=== PATIENT | male | born 1995 | race Caucasian/White ===

== ENCOUNTER 2018-08-25 15:52 | Emergency (ER) | payer OTHER ==
[~2018-08-25] VITALS: Ht 185.4 cm; Wt 99.8 kg
--- OUTSIDE RECORDS SUMMARY | ~2018-08-25 | XMS | Clinical Summary ---
Demographics + + + | Address | [address] | | | [place] [address] | + + + | Home Phone | | + + + | Preferred Language | Unknown | + + + | Marital Status | Single | + + + | Congregational Affiliation | Unknown | + + + | Race | White | + + + | Ethnic Group | Not or | + + + Author + + + | Organization | Unknown | + + + | Address | Unknown | + + + | Phone | Unavailable | + + + Support + + +---------+ + | Name | Relationship | Address | Phone | + + +---------+ + | DEACON PISANO | ECON | Unknown | | + + +---------+ + Care Team Providers + +------+ + | Care Special Delivery Worker Name | Role | Phone | + +------+ + PP | Unavailable | + +------+ + Source Comments AVINASH is fully live on both EpicCare Ambulatory and EpicCare InPatient.[facility] Allergies Not on File Current Medications Not on file Active Problems Not on file Social History + +-------+ +--------+------+ | Tobacco Use | Types | Packs/Day | Years | Date | | | | | Used | | + +-------+ +--------+------+ | Never Assessed | | | | | + +-------+ +--------+------+ + + + | Sex Assigned at | Date Recorded | | | | + + + | Not on file | | + + + Plan of Treatment + + + + + | Health Maintenance | Due Date | Last Done | Comments | + + + + + | Influenza (Flu) | | | | | vaccination (#1) | 8 | | | + + + + + Results Not on filefrom Last 3 Months"
--- OUTSIDE RECORDS SUMMARY | ~2018-08-25 | XMS | Clinical Summary ---
Demographics + + + | Address | [address] | | | [place] [address] | + + + | Home Phone | | + + + | Preferred Language | Unknown | + + + | Marital Status | Single | + + + | Taoist Affiliation | Unknown | + + + | Race | Unknown | + + + | Ethnic Group | Unknown | + + + Author + + + | Author | [facility] | | | and [place] | + + + | Organization | [facility] | | | and [place] | + + + | Address | Unknown | + + + | Phone | Unavailable | + + + Support + + +---------+ + | Name | Relationship | Address | Phone | + + +---------+ + | Heaven Barton | ECON | Unknown | | + + +---------+ + Care Team Providers + +------+ + | Care Hyperion Essbase Developer Name | Role | Phone | + +------+ + | Noel Lim DO | PP | Unavailable | + +------+ + Allergies No Known Allergies Current Medications + + +-------+---------+------+------+-------+ | Prescription | Sig. | Disp. | Refills | Star | End | Statu | | | | | | t | Date | s | | | | | | Date | | | + + +-------+---------+------+------+-------+ | metFORMIN | Take 500 mg by mouth | | | | | Activ | | (GLUCOPHAGE) 500 mg | 2 times daily (with | | | | | e | | tablet | breakfast & | | | | | | | | dinner). | | | | | | + + +-------+---------+------+------+-------+ Active Problems No known active problems Family History + +------+--------+ + | Relation | Name | Status | Comments | + +------+--------+ + | Father | | Alive | | + +------+--------+ + | Mother | | Alive | | + +------+--------+ + Social History + +-------+ +--------+------+ | Tobacco Use | Types | Packs/Day | Years | Date | | | | | Used | | + +-------+ +--------+------+ | Never Smoker | | | | | + +-------+ +--------+------+ + +---+---+---+ | Smokeless Tobacco: | | | | | Never Used | | | | + +---+---+---+ + + +---------+ + | Alcohol Use | Drinks/We | oz/Week | Comments | | | ek | | | + + +---------+ + | No | | | | + + +---------+ + + + + | Sex Assigned at | Date Recorded | | | | + + + | Not on file | | + + + Last Filed Vital Signs + + + + | Vital Sign | Reading | Time Taken | + + + + | Blood Pressure | 102/58 | 09/22/2017924 PST | + + + + | Pulse | 64 | 09/22/2017924 PST | + + + + | Temperature | 36.6 C (97.9 F) | 09/22/2017924 PST | + + + + | Respiratory Rate | 16 | 09/22/2017924 PST | + + + + | Oxygen Saturation | 100% | 09/22/2017924 PST | + + + + | Inhaled Oxygen | - | - | | Concentration | | | + + + + | Weight | 93.6 kg (206 lb 5.6 | 09/22/2017924 PST | | | oz) | | + + + + | Height | 185.4 cm (6' 1") | 09/22/2017924 PST | + + + + | Body Mass Index | 27.22 | 09/22/2017924 PST | + + + + Plan of Treatment + + + + + | Health Maintenance | Due Date | Last Done | Comments | + + + + + | Vaccine: | | | | | Dtap/Tdap/Td (1 - | 5 | | | | Tdap) | | | | + + + + + | Vaccine: Influenza | | | | | (#1) | 8 | | | + + + + + Results Not on filefrom Last 3 Months Insurance + +--------+ +--------+ +---------+ | Payer | Benefi | Subscriber | Type | Phone | Address | | | t Plan | ID | | | | | | / | | | | | | | Group | | | | | + +--------+ +--------+ +---------+ | CIGNA | CIGNA | [id number] | PPO | [phone] | | | PPO | | | [phone] | | + +--------+ +--------+ +---------+ | [place] | MEDICA | [id number] | Medica | [phone] | | | [place] | | id | [phone] | | | | PLUS | | | | | + +--------+ +--------+ +---------+ + +--------+ +--------+ + + | Guarantor Name | Accoun | Relation to | Date | Phone | Billing Address | | | t Type | Patient | of | | | | | | | | | | + +--------+ +--------+ + + | ELVIA REGALADO | Person | Self [birth year] Work: | [address] | | | [employer] | | 1994 | [phone] | [place] | | | yeni | | [phone]: | [id number] | | | | | | | | | | | | [phone] | | | | | | | [phone] | | + +--------+ +--------+ + +
--- OUTSIDE RECORDS SUMMARY | ~2018-08-25 | XMS ---
Demographics + + + | Address | [address] | | | [place] [address] | + + + | Home Phone | | + + + | Preferred Language | Unknown | + + + | Marital Status | Never | + + + | Zoroastrianism Affiliation | Unknown | + + + | Race | White | + + + | Ethnic Group | Not or | + + + Author + + + | Author | [facility] | + + + | Organization | [facility] | + + + | Address | [address] | | | [place] [address] | + + + | Phone | | + + + Care Team Providers + + + + | Care Scaler Packer Name | Role | Phone | + + + + | Porsha Karimi PCP | | + + + + | Porsha Karimi | PreferredProvider | | + + + + Allergies and Adverse Reactions + + +-------+ | Name | Reaction | Notes | + + +-------+ | NO KNOWN DRUG ALLERGIES | | | + + +-------+ Plan of Treatment + + + + + + | Planned | Comments | Planned Date | Planned Time | Plan/Goal | | Activity | | | | | + + + + + + | QUAD flu (P) | | 07/10/2018 | 12:00 AM | | | pres free 3+ | | | | | + + + + + + | ADMIN ONE | | 07/10/2018 | 12:00 AM | | | VACCINE | | | | | + + + + + + Medications +---------+ | | +---------+ + + + + + + | Name | Start Date | Expiration Date | SIG | Comments | + + + + + + | Tenex 1 mg oral | 09/10/2010 | 12/09/2010 | take 1 tablet | | | tablet | | | by oral route 2 | | | | | | times a day | | | | | | for 30 days | | + + + + + + | amoxicillin 875 | 09/26/2010 | 10/06/2010 | take 1 tablet | | | mg oral tablet | | | (875 mg) by | | | | | | oral route | | | | | | every 12 hours | | | | | | for 10 days | | + + + + + + | ofloxacin 0.3 % | 06/21/2011 | 06/28/2011 | instill 2 drops | | | otic drops | | | in affected | | | | | | ear 2 times a | | | | | | day for 7 days | | + + + + + + | Zithromax 250 | 06/26/2011 | 07/01/2011 | take 2 tablets | | | mg oral tablet | | | (500 mg) by | | | | | | oral route once | | | | | | daily for 1 | | | | | | day then 1 | | | | | | tablet (250 mg) | | | | | | by oral route | | | | | | once daily for | | | | | | 4 days | | + + + + + + | erythromycin | 06/29/2013 | 06/24/2014 | apply a thin | | | with ethanol 2 | | | layer to the | | | % topical | | | affected | | | solution | | | area(s) by | | | | | | topical route 2 | | | | | | times per day | | | | | | in the morning | | | | | | and evening for | | | | | | 30 days | | + + + + + + | minocycline 100 | 06/29/2013 | 06/24/2014 | take 1 capsule | | | mg oral | | | by mouth once | | | capsule | | | daily | | + + + + + + | Epiduo 0.1-2.5 | 10/04/2013 | 04/02/2014 | apply a thin | | | % topical gel | | | layer to the | | | with pump | | | affected | | | | | | area(s) after | | | | | | washing by | | | | | | topical route | | | | | | once daily | | + + + + + + | fluoxetine 20 | 01/07/2014 | 04/07/2014 | take 1 capsule | | | mg oral capsule | | | (20 mg) by oral | | | | | | route once | | | | | | daily for 30 | | | | | | days | | + + + + + + | Tia Lomas-Watson | 09/28/2014 | 10/03/2014 | take 2 tablets | | | 250 mg oral | | | (500 mg) by | | | tablet | | | oral route once | | | | | | daily for 1 | | | | | | day then 1 | | | | | | tablet (250 mg) | | | | | | by oral route | | | | | | once daily for | | | | | | 4 days | | + + + + + + | albuterol | 09/28/2014 | 11/09/2014 | inhale 2 puffs | | | sulfate 90 | | | Q 4 hrs prn | | | mcg/actuation | | | cough | | | inhalation HFA | | | | | | aerosol inhaler | | | | | + + + + + + + + | Discontinued | + + + + + + + + | Name | Start Date | Discontinued | SIG | Comments | | | | Date | | | + + + + + + | Singulair 10 mg | | 10/06/2012 | take 1 tablet | | | oral tablet | | | (10 mg) by oral | | | | | | route once | | | | | | daily in the | | | | | | evening | | + + + + + + | Prozac 20 mg | 08/23/2010 | 03/26/2012 | take 1.5 | | | oral capsule | | | capsules by | | | | | | oral route | | | | | | daily | | + + + + + + | Cortisporin | 06/21/2011 | 06/21/2011 | instill 3 drops | | | 3.5-10,000-1 | | | into L ear TID | | | mg/mL-unit/mL-% | | | x 7 days | | | otic | | | | | | drops,suspensio | | | | | | n | | | | | + + + + + + | Vyvanse 30 mg | 06/28/2011 | 03/26/2012 | take 1 capsule | | | oral capsule | | | (30 mg) by oral | | | | | | route once | | | | | | daily in the | | | | | | morning for 30 | | | | | | days | | + + + + + + | Cleocin T 1 % | 07/08/2011 | 06/29/2013 | apply a thin | | | topical | | | film to | | | solution | | | affected | | | | | | area(s) by | | | | | | topical route 2 | | | | | | times per day | | + + + + + + Problem List + +--------+ + | Description | Status | Onset | + +--------+ + | Anxiety Disorder | Active | 09/10/2010 | + +--------+ + | Attention Deficit Disorder, | Active | 09/10/2010 | | Inattentive Type | | | + +--------+ + | Acanthosis nigricans | Active | 09/10/2010 | + +--------+ + | Acne | Active | 03/28/2012 | + +--------+ + | Developmental Delay | Active | | + +--------+ + | 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 | | | + +--------+ + | Speech disturbance | Active | | + +--------+ + | Kyphosis | Active | | + +--------+ + Vital Signs +-----+-----+-----+-----+-----+-----+-----+-----+-----+----+-----+-----+-----+-----+ | Bi | Artis | BP- | BP- | HR( | RR( | Tem | WT | HT | HC | BMI | BSA | BMI | O2 | | e | e | Sys | Janae | bpm | rpm | p | | | | | | | Sat | | | | (mm | (mm | ) | ) | | | | | | | Per | (%) | | | | [Hg | [Hg | | | | | | | | | ruy | | | | | ] | ]) | | | | | | | | | til | | | | | | | | | | | | | | | e | | +-----+-----+-----+-----+-----+-----+-----+-----+-----+----+-----+-----+-----+-----+ | 12/ | 5:0 | 110 | 78 | 76 | 16 | 99 | 180 | 71. | | 24. | 2.0 | 78. | 98 | | 10/ | 8:0 | | mmH | bpm | rpm | F | | 5 | | 754 | 295 | 2 % | % | | 201 | 0 | mmH | g | | | | lbs | in | | 8 | | | | | 4 | PM | g | | | | | | | | kg/ | m | | | | | | | | | | | | | | m | | | | +-----+-----+-----+-----+-----+-----+-----+-----+-----+----+-----+-----+-----+-----+ | 4/8 | 11: | 102 | 72 | 79 | 16 | 99. | 182 | 71. | | 25. | 2.0 | 83. | 100 | | /20 | 18: | | mmH | bpm | rpm | 2 F | .5 | 5 | | 10 | 4 | 4 % | % | | 14 | 00 | mmH | g | | | | lbs | in | | kg/ | m2 | | | | | AM | g | | | | | | | | m2 | | | | +-----+-----+-----+-----+-----+-----+-----+-----+-----+----+-----+-----+-----+-----+ | 11/ | 11: | 102 | 78 | 72 | 16 | 98. | 179 | 71. | | 24. | 2.0 | 82. | 98 | | 2/2 | 32: | | mmH | bpm | rpm | 4 F | | 5 | | 617 | 239 | 4 % | % | | 013 | 00 | mmH | g | | | | lbs | in | | 2 | | | | | | AM | g | | | | | | | | kg/ | m | | | | | | | | | | | | | | m | | | | +-----+-----+-----+-----+-----+-----+-----+-----+-----+----+-----+-----+-----+-----+ | 9/1 | 8:4 | 102 | 70 | 71 | 16 | 98. | 174 | 71. | | 24. | 1.9 | 80. | 98 | | 0/2 | 2:0 | | mmH | bpm | rpm | 6 F | .5 | 2 | | 20 | 9 | 4 % | % | | 013 | 0 | mmH | g | | | | lbs | in | | kg/ | m2 | | | | | AM | g | | | | | | | | m2 | | | | +-----+-----+-----+-----+-----+-----+-----+-----+-----+----+-----+-----+-----+-----+ | 6/8 | 8:2 | 110 | 68 | 70 | 16 | 98. | 170 | 70. | | 23. | 1.9 | 83. | | | /20 | 1:0 | | mmH | bpm | rpm | 7 F | | 8 | | 844 | 626 | 9 % | | | 12 | 0 | mmH | g | | | | lbs | in | | 1 | | | | | | AM | g | | | | | | | | kg/ | m | | | | | | | | | | | | | | m | | | | +-----+-----+-----+-----+-----+-----+-----+-----+-----+----+-----+-----+-----+-----+ | 9/9 | 12: | 118 | 70 | 80 | 16 | 97. | 158 | 69. | | 23. | 1.8 | 83. | | | /20 | 06: | | mmH | bpm | rpm | 7 F | | 2 | | 20 | 7 | 4 % | | | 11 | 00 | mmH | g | | | | lbs | in | | kg/ | m2 | | | | | PM | g | | | | | | | | m2 | | | | +-----+-----+-----+-----+-----+-----+-----+-----+-----+----+-----+-----+-----+-----+ | 9/2 | 8:1 | 110 | 62 | 70 | 16 | 98. | 159 | 69. | | 23. | 1.8 | 83. | | | /20 | 4:0 | | mmH | bpm | rpm | 2 F | .5 | 5 | | 216 | 835 | 6 % | | | 11 | 0 | mmH | g | | | | lbs | in | | 1 | | | | | | AM | g | | | | | | | | kg/ | m | | | | | | | | | | | | | | m | | | | +-----+-----+-----+-----+-----+-----+-----+-----+-----+----+-----+-----+-----+-----+ | 11/ | 8:4 | 112 | 82 | 80 | 16 | 98. | 144 | 67. | | 22. | 1.7 | 82. | | | 22/ | 3:0 | | mmH | bpm | rpm | 3 F | | 3 | | 352 | 6 | 1 % | | | 201 | 0 | mmH | g | | | | lbs | in | | 7 | m2 | | | | 0 | AM | g | | | | | | | | kg/ | | | | | | | | | | | | | | | m | | | | +-----+-----+-----+-----+-----+-----+-----+-----+-----+----+-----+-----+-----+-----+ Social History + + + + | Name | Description | Comments | + + + + | Tobacco | Never smoker | | + + + + | Lives With | | parents Heaven and Karlos, | | | | sisters Josefa and Lesly | + + + + History of Procedures + + + + | Date Ordered | Description | Order Status | + + + + | 06/21/2011 12:00 AM | FLU VACCINE NASAL | Reviewed | + + + + | 06/21/2011 12:00 AM | IMMUNE ADMIN ORAL/NASAL | Reviewed | + + + + | 11/26/2010 12:00 AM | TDAP VACCINE 7 YRS/> IM | Reviewed | + + + + | 06/28/2011 12:00 AM | FLU VACCINE 3 YRS & > IM | Reviewed | + + + + | 06/28/2011 12:00 AM | IMMUNIZATION ADMIN | Reviewed | + + + + | 09/28/2014 12:00 AM | MEASURE BLOOD OXYGEN LEVEL | Reviewed | + + + + | 11/26/2010 12:00 AM | IMMUNIZATION ADMIN | Reviewed | + + + + | 07/31/2012 12:00 AM | FLU VACCINE NASAL | Reviewed | + + + + | 03/27/2012 12:00 AM | X-RAY EXAM SPINE AP&LAT | Reviewed | + + + + | 08/01/2015 12:00 AM | FLU VACCINE 4 VALENT NASAL | Reviewed | + + + + | 08/01/2015 12:00 AM | IMMUNE ADMIN ORAL/NASAL | Reviewed | + + + + | 07/31/2012 12:00 AM | IMMUNE ADMIN ORAL/NASAL | Reviewed | + + + + | 09/10/2010 12:00 AM | FLU VACCINE NASAL | Reviewed | + + + + | 09/10/2010 12:00 AM | COMPREHEN METABOLIC PANEL | Reviewed | + + + + | 09/10/2010 12:00 AM | COMPLETE CBC W/AUTO DIFF | Reviewed | | | WBC | | + + + + | 09/10/2010 12:00 AM | ASSAY OF FREE THYROXINE | Reviewed | + + + + | 09/10/2010 12:00 AM | ASSAY OF INSULIN | Reviewed | + + + + | 09/10/2010 12:00 AM | ASSAY THYROID STIM HORMONE | Reviewed | + + + + | 09/10/2010 12:00 AM | LIPID PANEL | Reviewed | + + + + | 12/29/2015 12:00 AM | HPV VACCINE 4 VALENT IM | Reviewed | + + + + | 12/29/2015 12:00 AM | IMMUNIZATION ADMIN | Reviewed | + + + + | 09/10/2010 12:00 AM | IMMUNE ADMIN ORAL/NASAL | Reviewed | + + + + | 06/29/2013 12:00 AM | IMMUNE ADMIN ORAL/NASAL | Reviewed | | | ADDL | | + + + + | 06/29/2013 12:00 AM | IMMUNIZATION ADMIN EACH ADD | Reviewed | + + + + | 06/29/2013 12:00 AM | IMMUNIZATION ADMIN | Reviewed | + + + + | 06/29/2013 12:00 AM | HPV VACCINE 4 VALENT IM | Reviewed | + + + + | 06/29/2013 12:00 AM | MENINGOCOCCAL VACCINE IM | Reviewed | + + + + | 06/29/2013 12:00 AM | FLU VACCINE 4 VALENT NASAL | Reviewed | + + + + | 06/29/2013 12:00 AM | MEASURE BLOOD OXYGEN LEVEL | Reviewed | + + + + | 08/21/2013 12:00 AM | MEASURE BLOOD OXYGEN LEVEL | Reviewed | + + + + | 06/24/2017 12:00 AM | FLU VAC NO PRSV 4 ALVARO 3 | Reviewed | | | YRS+ | | + + + + | 06/24/2017 12:00 AM | IMMUNIZATION ADMIN | Reviewed | + + + + | 08/15/2014 12:00 AM | IMMUNE ADMIN ORAL/NASAL | Reviewed | + + + + | 01/25/2014 12:00 AM | HPV VACCINE 4 VALENT IM | Reviewed | + + + + | 01/25/2014 12:00 AM | IMMUNIZATION ADMIN | Reviewed | + + + + | 08/15/2014 12:00 AM | FLU VACCINE 4 VALENT NASAL | Reviewed | + + + + Results Summary + + + | Date and Description | Results | + + + | 09/15/2010 9:08 AM | CHOLESTEROL 143 TRIGLYCERIDES 233 HDL 38 | | | LDL 58 VLDL 47 CHOL/HDL 3.8 NON-HDL CHOL | | | 105 FREE T4 0.81 TSH, 3rd GEN. 2.56 SODIUM | | | 139 POTASSIUM 3.8 CHLORIDE 103 CARBON | | | DIOXIDE 27 ANION GAP 12.8 GLUCOSE 83 UREA | | | NITROGEN 15 CREATININE, SERUM 0.61 GFR | | | ESTIMATION NOT PERFORMED BUN/CREAT.RATIO | | | 24.6 CALCIUM 9.8 AST(SGOT) 23 ALT(SGPT) 25 | | | ALKALINE PHOS 295 BILIRUBIN, TOTAL 0.4 | | | PROTEIN 7.8 ALBUMIN 4.9 GLOBULIN 2.9 A/G | | | RATIO 1.7 HEMOGLOBIN A1C 5.5 EST AVG | | | GLUCOSE 111 INSULIN, FASTING 13.4 WBC 5.8 | | | RBC 4.73 HEMOGLOBIN 14.1 HEMATOCRIT 42.2 | | | MCV 89.4 RDW 12.0 MCH 30 MCHC 33 PLATELET | | | COUNT 277 NEUTROPHILS 39.1 LYMPHOCYTES | | | 50.5 MONOCYTES 8.4 EOSINOPHILS 1.4 | | | BASOPHILS 0.6 | + + + History Of Immunizations +-------+-------+-------+------+-------+-------+-------+-------+-------+-------+-----+ | Name | Date | Mfg | Mfg | Trade | Lot# | Route | Inj | Vis | Vis | CVX | | | Admin | Name | Code | Name | | | | Given | Pub | | +-------+-------+-------+------+-------+-------+-------+-------+-------+-------+-----+ | DTaP | | Not | NE | Not | | Not | Not | | | 999 | | | 998 | Enter | | Enter | | Enter | Enter | 001 | 001 | | | | | ed | | ed | | ed | ed | | | | +-------+-------+-------+------+-------+-------+-------+-------+-------+-------+-----+ | DTaP | 06/06/ | Not | NE | Not | | Not | Not | 0 | | 999 | | | 2000 | Enter | | Enter | | Enter | Enter | 001 | 001 | | | | | ed | | ed | | ed | ed | | | | +-------+-------+-------+------+-------+-------+-------+-------+-------+-------+-----+ | Hib | | Not | NE | Not | | Not | Not | 0 | | 999 | | | 998 | Enter | | Enter | | Enter | Enter | 001 | 001 | | | | | ed | | ed | | ed | ed | | | | +-------+-------+-------+------+-------+-------+-------+-------+-------+-------+-----+ | IPV | | Not | NE | Not | | Not | Not | | | 999 | | | 998 | Enter | | Enter | | Enter | Enter | 001 | 001 | | | | | ed | | ed | | ed | ed | | | | +-------+-------+-------+------+-------+-------+-------+-------+-------+-------+-----+ | IPV | 06/06/ | Not | NE | Not | | Not | Not | | | 999 | | | 2000 | Enter | | Enter | | Enter | Enter | 001 | 001 | | | | | ed | | ed | | ed | ed | | | | +-------+-------+-------+------+-------+-------+-------+-------+-------+-------+-----+ | MMR | 09/08 | Not | NE | Not | | Not | Not | | | 999 | | | /1998 | Enter | | Enter | | Enter | Enter | 001 | 001 | | | | | ed | | ed | | ed | ed | | | | +-------+-------+-------+------+-------+-------+-------+-------+-------+-------+-----+ | MMR | 06/06/ | Not | NE | Not | | Not | Not | | | 999 | | | 2000 | Enter | | Enter | | Enter | Enter | 001 | 001 | | | | | ed | | ed | | ed | ed | | | | +-------+-------+-------+------+-------+-------+-------+-------+-------+-------+-----+ | Varic | 08/08 | Not | NE | Not | | Not | Not | | | 999 | | feli | /2005 | Enter | | Enter | | Enter | Enter | 001 | 001 | | | | | ed | | ed | | ed | ed | | | | +-------+-------+-------+------+-------+-------+-------+-------+-------+-------+-----+ | Hep A | 06/06/ | Not | NE | Not | | Not | Not | | | 999 | | | 2000 | Enter | | Enter | | Enter | Enter | 001 | 001 | | | | | ed | | ed | | ed | ed | | | | +-------+-------+-------+------+-------+-------+-------+-------+-------+-------+-----+ | Hep A | 02/28/ | Not | NE | Not | | Not | Not | | | 999 | | | 2001 | Enter | | Enter | | Enter | Enter | 001 | 001 | | | | | ed | | ed | | ed | ed | | | | +-------+-------+-------+------+-------+-------+-------+-------+-------+-------+-----+ | Prevn | 09/10 | Not | NE | Not | | Not | Not | | | 999 | | ar | | Enter | | Enter | | Enter | Enter | 001 | 001 | | | | | ed | | ed | | ed | ed | | | | +-------+-------+-------+------+-------+-------+-------+-------+-------+-------+-----+ | Rotav | 09/10 | Not | NE | Not | | Not | Not | | | 999 | | irus | | Enter | | Enter | | Enter | Enter | 001 | 001 | | | | | ed | | ed | | ed | ed | | | | +-------+-------+-------+------+-------+-------+-------+-------+-------+-------+-----+ | Menac | 06/06/ | Not | NE | Not | | Not | Not | | | 999 | | tra | 2006 | Enter | | Enter | | Enter | Enter | 001 | 001 | | | | | ed | | ed | | ed | ed | | | | +-------+-------+-------+------+-------+-------+-------+-------+-------+-------+-----+ | FluMi | 06/02/ | Not | NE | Not | | Not | Not | | | 999 | | st | 2008 | Enter | | Enter | | Enter | Enter | 001 | 001 | | | | | ed | | ed | | ed | ed | | | | +-------+-------+-------+------+-------+-------+-------+-------+-------+-------+-----+ | FluMi | 09/10 | Med[facility] | MED | Flu-N | [id number] | Intra | None | 09/10 | 05/29/ | 999 | | st | | mune, | | dick | 6P | nasal | | /2009 | 2009 | | | | | Inc. | | | | | | | | | +-------+-------+-------+------+-------+-------+-------+-------+-------+-------+-----+ | Tdap | | Glaxo | SKB | ADACE | [id number] | Intra | Right | | 04/30/ | 999 | | | 011 | Stacy | | L | ab | muscu | | 011 | 2005 | | | | | Almonte | | | | lar | Delto | | | | | | | | | | | | id | | | | +-------+-------+-------+------+-------+-------+-------+-------+-------+-------+-----+ | HepB | 06/19/ | Not | NE | Not | | Not | Not | | | 999 | | | 2010 | Enter | | Enter | | Enter | Enter | 001 | 001 | | | | | ed | | ed | | ed | ed | | | | +-------+-------+-------+------+-------+-------+-------+-------+-------+-------+-----+ | FluMi | | [facility] | MED | Flu-N | [id number] | Intra | None | | 05/14/ | 999 | | st | 011 | mune, | | dick | 2P | nasal | | 011 | 2010 | | | | | Inc. | | | | | | | | | +-------+-------+-------+------+-------+-------+-------+-------+-------+-------+-----+ | Flu | | sanof | PMC | Fluzo | [id number] | Intra | Left | | 05/29/ | 999 | | 3+ | 011 | i | | ne > | AA | muscu | Delto | 011 | 2009 | | | years | | paste | | 3 | | lar | id | | | | | | | ur | | Years | | | | | | | +-------+-------+-------+------+-------+-------+-------+-------+-------+-------+-----+ | FluMi | 07/31 | [facility] | MED | Flu-N | [id number] | Intra | None | 08/03 | | [address] | | st | | mune, | | dick | 8 | nasal | | | 012 | | | | | Inc. | | | | | | | | | +-------+-------+-------+------+-------+-------+-------+-------+-------+-------+-----+ | HPV | 06/29/ | Merck | MSD | GARDA | [id number] | Intra | Left | 06/29/ | | 62 | | | 2012 | & | | RUSSELL | 25 | muscu | Delto | 2012 | 900 | | | | | Co., | | | | lar | id | | | | | | | Inc. | | | | | | | | | +-------+-------+-------+------+-------+-------+-------+-------+-------+-------+-----+ | FluMi | 06/29/ | [facility] | MED | Flu-N | [id number] | Intra | None | 06/29/ | 05/14/ | 111 | | st | 2012 | mune, | | dick | | nasal | | 2012 | 2012 | | | | | Inc. | | | | | | | | | +-------+-------+-------+------+-------+-------+-------+-------+-------+-------+-----+ | Menac | 06/29/ | sanof | PMC | MENAC | [id number] | Intra | Left | 06/29/ | 08/02 | 136 | | tra | 2012 | i | | TRA | BA | muscu | Delto | 2012 | | | | | | paste | | | | lar | id | | | | | | | ur | | | | | | | | | +-------+-------+-------+------+-------+-------+-------+-------+-------+-------+-----+ | HPV | | Merck | MSD | GARDA | [id number] | Intra | Right | | 03/05/ | 62 | | | 014 | & | | RUSSELL | 46 | muscu | | 014 | 2012 | | | | | Co., | | | | lar | Delto | | | | | | | Inc. | | | | | id | | | | +-------+-------+-------+------+-------+-------+-------+-------+-------+-------+-----+ | FluMi | 08/15 | [facility] | MED | Flu-N | [id number] | Intra | None | 08/15 | 06/07/ | [address] | | st | | mune, | | dick | 1 | nasal | | | 2013 | | | | | Inc. | | | | | | | | | +-------+-------+-------+------+-------+-------+-------+-------+-------+-------+-----+ | FluMi | 08/01 | [facility] | MED | Flumi | [id number] | Intra | None | 08/01 | | [address] | | st | | mune, | | st | 9 | nasal | | | 015 | | | | | Inc. | | quadr | | | | | | | | | | | | ivale | | | | | | | | | | | | nt | | | | | | | +-------+-------+-------+------+-------+-------+-------+-------+-------+-------+-----+ | HPV | 12/28/ | Merck | MSD | GARDA | [id number] | Intra | Left | 12/28/ | 03/05/ | 62 | | | 2015 | & | | RUSSELL | 47 | muscu | Arm | 2015 | 2012 | | | | | Co., | | | | lar | | | | | | | | Inc. | | | | | | | | | +-------+-------+-------+------+-------+-------+-------+-------+-------+-------+-----+ | Flu | | sanof | PMC | Fluzo | [id number] | Intra | Left | | | 150 | | 3+ | 017 | i | | ne | AA | muscu | Arm | 017 | 015 | | | years | | paste | | Quadr | | lar | | | | | | | | ur | | ivale | | | | | | | | | | | | nt | | | | | | | +-------+-------+-------+------+-------+-------+-------+-------+-------+-------+-----+ History of Past Illness + + + + | Name | Date of Onset | Comments | + + + + | Influenza Nasal | Sep 10 2010 8:43AM | | + + + + | Attention Deficit Disorder, | Sep 10 2010 8:43AM | | | Inattentive Type | | | + + + + | Anxiety Disorder | Sep 10 2010 8:43AM | | + + + + | Oppositional defiant | Sep 10 2010 8:43AM | | | disorder | | | + + + + | Acanthosis nigricans | Sep 10 2010 8:43AM | | + + + + | Strep Throat | Sep 26 2010 1:49PM | | + + + + | Developmental Delay | | | + + + + | Reactive Airway Disease | | | + + + + | Obsessive-compulsive | | | | disorder | | | + + + + | ADOL TDAP 10 UP | Nov 26 2010 2:55PM | | + + + + | Anxiety Disorder | 09/10/2010 | | + + + + | Attention Deficit Disorder, | 09/10/2010 | | | Inattentive Type | | | + + + + | Acanthosis nigricans | 09/10/2010 | | + + + + | Speech disturbance | | | + + + + | Influenza Nasal | Jun 21 2011 8:05AM | | + + + + | Left Otitis Externa | Sep 2010 8:05AM | | + + + + | Influenza 3YR & UP | Sep 2010 11:05AM | | + + + + | Attention Deficit Disorder, | Sep 2010 11:05AM | | | Inattentive Type | | | + + + + | Anxiety Disorder | Sep 2010 11:05AM | | + + + + | Obsessive-Compulsive | Sep 2010 11:05AM | | | Disorder | | | + + + + | Acne | Sep 2010 11:05AM | | + + + + | Acne | 03/28/2012 | | + + + + | Kyphosis | | | + + + + | Well Child Check | Mar 27 2012 8:14AM | | + + + + | Anxiety Disorder | Mar 27 2012 8:14AM | | + + + + | Acne | Mar 27 2012 8:14AM | | + + + + | Influenza Nasal | Aug 03 2012 10:06AM | | + + + + | Influenza Nasal | Jun 29 2013 8:37AM | | + + + + | HPV (Gardisil) | Sep 2012 8:37AM | | + + + + | Menactra 11 & UP | Sep 2012 8:37AM | | + + + + | Anxiety Disorder | Sep 2012 8:37AM | | + + + + | Learning Disability | Sep 10 2012 8:37AM | | + + + + | Acne | Sep 10 2012 8:37AM | | + + + + | Speech disturbance | Sep 2012 8:37AM | | + + + + | Kyphosis | Jun 29 2013 8:37AM | | + + + + | Bronchitis, Acute | Aug 21 2013 11:29AM | | + + + + | HPV (Gardisil) | Jan 25 2014 8:06AM | | + + + + | Anxiety Disorder | Jan 25 2014 8:06AM | | + + + + | Acne | Jan 25 2014 8:06AM | | + + + + | Influenza Nasal | Aug 15 2014 8:00AM | | + + + + | Bronchitis, Acute | Sep 28 2014 4:27PM | | + + + + | Influenza Nasal | Aug 01 2015 11:25AM | | + + + + | HPV | Dec 29 2015 9:07AM | | + + + + | Influenza 3YR & UP | Jun 24 2017 3:56PM | | + + + + | Influenza 3YR & UP | Jul 10 2018 10:03AM | | + + + + Payers + + + +--------+ +---------+ + | Insurance | Company | Plan Name | Plan | Policy | Policy | Start Date | | Name | Name | | Number | Number | Group | | | | | | | | Number | | + + + +--------+ +---------+ + | | Cigna | Cigna | | [id number] | | , | | | | | | | | August | | | | | | | | 2011 | + + + +--------+ +---------+ + | | Aetna | Aetna | | [id number] | | Friday, | | | | | | | | October | | | | | | | | 2009 | + + + +--------+ +---------+ + History of Encounters + + + + | Visit Date | Visit Type | Provider | + + + + | 07/10/2018 | Walk In | Nurse Nurse | + + + + | 06/24/2017 | Walk In | Nurse Nurse | + + + + | 12/29/2015 | Walk In | Nurse Nurse | + + + + | 08/01/2015 | Walk In | Nurse Nurse | + + + + | 09/28/2014 | Day Appt | [facility] | + + + + | 08/15/2014 | Walk In | Nurse Nurse | + + + + | 01/25/2014 | Consult | Porsha Karimi MD | + + + + | 08/21/2013 | Acute Illness | [facility] | + + + + | 06/29/2013 | Office Visit | Porhsa Karimi MD | + + + + | 07/31/2012 | Walk In | Nurse Nurse | + + + + | 03/27/2012 | Well Child Check | Porsha Karimi MD | + + + + | 06/28/2011 | Consult | Porsha Karimi MD | + + + + | 06/21/2011 | Acute Illness | [facility] | + + + + | 11/26/2010 | Walk In | Nurse Nurse | + + + + | 09/26/2010 | Walk In | Nurse Nurse | + + + + | 09/10/2010 | Office Visit | Porsha Karimi MD | + + + +"
--- OUTSIDE RECORDS SUMMARY | ~2018-08-25 | XMS ---
Demographics + + + | Address | [address] | | | [place] [address] | + + + | Home Phone | | + + + | Preferred Language | Unknown | + + + | Marital Status | Never | + + + | Judaism Affiliation | Unknown | + + + | Race | White | + + + | Ethnic Group | Not or | + + + Author + + + | Author | [facility] | + + + | Organization | [facility] | + + + | Address | [address] | | | [place] [address] | + + + | Phone | | + + + Care Team Providers + + + + | Care Agronomy Research Manager Name | Role | Phone | + + + + | Porsha Karimi PCP | | + + + + | Porsha Karimi | PreferredProvider | | + + + + Allergies and Adverse Reactions + + +-------+ | Name | Reaction | Notes | + + +-------+ | NO KNOWN DRUG ALLERGIES | | | + + +-------+ Plan of Treatment Not available. Medications +---------+ | | +---------+ + + [...] + + + + + | Zithromax Z-Watson | 09/28/2014 | 10/03/2014 | take 2 [...] | F | | 5 | | 75 | 3 | 2 % | % | | 201 | 0 | mmH | g | | | | lbs | in | | kg/ | m2 | | | | 4 | PM | g | | | | | | | | m2 | | | | +-----+-----+-----+-----+-----+-----+-----+-----+-----+----+-----+-----+-----+-----+ | 4/8 | 11: | 102 | 72 | 79 | 16 | 99. | 182 | 71. | | 25. | 2.0 | 83. | 100 | | /20 | 18: | | mmH | bpm | rpm | 2 F | .5 | 5 | | 098 | 435 | 4 % | % | | 14 | 00 | mmH | g | | | | lbs | in | | 6 | | | | | | AM [...] 4 F | | 5 | | 62 | 2 | 4 % | % | | 013 | 00 | mmH | g | | | | lbs | in | | kg/ | m2 | | | | | AM | g | | | | | | | | m2 | | | | +-----+-----+-----+-----+-----+-----+-----+-----+-----+----+-----+-----+-----+-----+ | 9/1 | 8:4 | 102 | 70 | 71 | 16 | 98. | 174 | 71. | | 24. | 1.9 | 80. | 98 | | 0/2 | 2:0 | | mmH | bpm | rpm | 6 F | .5 | 2 | | 201 | 941 | 4 % | % | | 013 | 0 | mmH | g | | | | lbs | in | | | | | | | | AM | g | | | | | | | | kg/ | m | | | | | | | | | | | | | | m | | | | +-----+-----+-----+-----+-----+-----+-----+-----+-----+----+-----+-----+-----+-----+ | 6/8 | 8:2 | 110 | 68 | 70 | 16 | 98. | 170 | 70. | | 23. | 1.9 | 83. | | | /20 | 1:0 | | mmH | bpm | rpm | 7 F | | 8 | | 84 | 6 | 9 % | | | 12 | 0 | mmH | g | | | | lbs | in | | kg/ | m2 | | | | | AM | g | | | | | | | | m2 | | | | +-----+-----+-----+-----+-----+-----+-----+-----+-----+----+-----+-----+-----+-----+ | 99 | 12: | 118 | 70 | 80 | 16 | 97. | 158 | 69. | | 23. | 1.8 | 83. | | | /20 | 06: | | mmH | bpm | rpm | 7 F | | 2 | | 197 | 706 | 4 % | | | 11 | 00 | mmH | g | | | | lbs | in | | 6 | | | | | | PM | g | | | | | | | | kg/ | m | | | | | | | | | | | | | | m | | | | +-----+-----+-----+-----+-----+-----+-----+-----+-----+----+-----+-----+-----+-----+ | 9/2 | 8:1 | 110 | 62 | 70 | 16 | 98. | 159 | 69. | | 23. | 1.8 | 83. | | | /20 | 4:0 | | mmH | bpm | rpm | 2 F | .5 | 5 | | 22 | 8 | 6 % | | | 11 [...] | | 3 | | 352 | 611 | 1 % | | | 201 | 0 | mmH | g | | | | lbs | in | | 7 | | | | | 0 | AM [...] + | Lives With | | parents Lila, | | | | sisters Josefa and [...] | Not | Not | 0 | 0 | 999 | | | 2000 | Enter | | Enter | | Enter | Enter | 001 | 001 | | | | | ed | | ed | | ed | ed | | | | +-------+-------+-------+------+-------+-------+-------+-------+-------+-------+-----+ | Hib | | Not | NE | Not | | Not | Not | 0 | 0 | 999 | | | 998 | [...] | | 999 | | feli | | Enter | | Enter | [...] | | 999 | | ar | /2009 | Enter | | Enter | | [...] | Medim | MED | Flu-N | [id number] | Intra | None | 09/10 | [...] | Not | Not | | | | | | 2010 | Enter | | Enter | | Enter | Enter | 001 | 001 | | | | | ed | | ed | | ed | ed | | | | +-------+-------+-------+------+-------+-------+-------+-------+-------+-------+-----+ | FluMi | | Medim | MED | Flu-N | [id number] | Intra | None | | 05/14/ [...] 2012 | mune, | | dick | 9 | | | 2012 | 2012 | | | | | Inc. | | | | | | | | | +-------+-------+-------+------+-------+-------+-------+-------+-------+-------+-----+ | Menac | 06/29/ | sanof | PMC | Menac | [id number] | Intra | Left | 06/29/ | 08/02 | 136 | | tra | 2012 | i | | tra | BA | muscu | Delto | 2012 | | | | | paste | [...] | 08/01 | Medim | MED | FluMi | [id number] | Intra | None | 08/01 | | [address] | | [address] | | mune, | | st | 9 | nasal | | | 015 | | | | | Inc. | | Quadr | | | | | | | | | | | | ivale | | | | | | | | | | | | nt | | | | | | | +-------+-------+-------+------+-------+-------+-------+-------+-------+-------+-----+ | HPV | 12/28/ | Merck | MSD | GARDA | [id number] | Intra | Left | 12/28/ | 03/05/ | 62 | | | 2016 | & | | RUSSELL | 47 [...] + + | Influenza Nasal | Sep 2010 8:05AM | | + [...] + + + + | Acne | Jun 28 2011 11:05AM | | + + + + [...] + + + | Influenza Nasal | Oct 2011 10:06AM | | + + + + | Influenza Nasal | Jun 29 2013 8:37AM | | + + + + | HPV (Gardisil) | Sep 2012 8:37AM | | + + + + | Menactra 11 & UP | Sep 10 2012 8:37AM | | + + + + | Anxiety Disorder | Sep 10 2012 8:37AM | | + + + + | Learning Disability | Sep 10 2012 8:37AM | | + + + + | Acne | Sep 2012 8:37AM | | + + + + | Speech disturbance | Jun 29 2013 8:37AM | | [...] 3:56PM | | + + + + Payers [...] | | Cigna | Cigna | | [id number] | | , | | | | | | | | August | | | | | | | | 2011 | + + + +--------+ +---------+ + | | Aetna | Aetna | | [id number] | | Friday, | | | | | | | | October | | | | | | | | 2009 | + + + +--------+ +---------+ + History of Encounters + + + + | Visit Date | Visit Type | Provider | + + + + | 06/24/2017 [...] + | 06/29/2013 | Office Visit | Porsha Karimi MD [...]
--- OUTSIDE RECORDS SUMMARY | ~2018-08-25 | XMS | Clinical Summary ---
Demographics + + + | Address | [address] | | | [place] [address] | + + + | Home Phone | | + + + | Preferred Language | Unknown | + + + | Marital Status | Single | + + + | Scientology Affiliation | Unknown | + + + | Race | Unknown | + + + | Ethnic Group | Unknown | + + + Author + + + | Author | [facility] | | | and Bhavikana | + + + | Organization | [facility] | | | and Bhavikana | [...] Team Providers + +------+ + | Care Live Out Nanny Name | Role | Phone | + [...] +--------+ +---------+ | CIGNA | CIGNA | [id number] | PPO | [phone] | | | PPO | | | [phone] | | + +--------+ +--------+ +---------+ | [place] | MEDICA | [id number] | Medica | [phone] | | [...] | | chris/Obed | | 1994 | [phone] | [place] | | | yeni | | [phone]: | [phone] | | | | | | | | | | | | | [phone] | | | | | | | [phone] | | + +--------+ +--------+ + +
--- OUTSIDE RECORDS SUMMARY | ~2018-08-25 | XMS | Clinical Summary ---
Demographics + + + | Address | [address] | | | [place] [address] | + + + | Home Phone | | + + + | Preferred Language | Unknown | + + + | Marital Status | Single | + + + | Episcopalian Affiliation | Unknown | + + + [...] Team Providers + +------+ + | Care Complaint Clerk Name | Role | Phone | + +------+ + PP | Unavailable | + +------+ + Source Comments AVINASH is fully live on both EpicCare Ambulatory and EpicCare InPatient.[facility] Allergies Not on File Current Medications Not [...]
--- OUTSIDE RECORDS SUMMARY | 2018-08-25 15:58 | XMS ---
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 Lisa VISIT COUNT (12 MO.) Kalyan Giordano TOTAL 1 NOTE: Visits indicate total known visits. ED/UCC VISIT TRACKING (12 MO.) 08/25/2018 15:[address] [facility] [place] TYPE: Emergency COMPLAINT: - FALL,HEAD PAIN/INJURY INPATIENT VISIT TRACKING (12 MO.) No inpatient visits to display in this time frame [id number]
[2018-08-25] MEDS ORDERED: METFORMIN HCL500 MG PO (16:25)
[2018-08-25] MEDS ORDERED: MELATONIN10 M2 PO (16:26)
== END 2018-08-25 18:31 | disposition home or self-care (01) ==
LOC: ED 15:52
DX: S09.90XA Unspecified injury of head, initial encounter (principal); R55 Syncope and collapse; W22.8XXA Striking against or struck by other objects, initial encounter; Z79.84 Long term (current) use of oral hypoglycemic drugs
CPT/HCPCS: 36415; 70450; 80053; 81001; 83036; 85025; 99284

== ENCOUNTER 2021-03-25 15:58 | Emergency (ER) | payer BC, OTHER ==
[~2021-03-25] VITALS: Ht 185.4 cm; Wt 99.8 kg
[~2021-03-25 15:58] MED LIST: MELATONIN10 M2 PO; METFORMIN HCL500 MG PO
--- OUTSIDE RECORDS SUMMARY | 2021-03-25 16:00 | XMS ---
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 ERosemary VISIT COUNT (12 MO.) 1 MICHELLE Giordano TOTAL 1 NOTE: Visits indicate total known visits. ED/UCC VISIT TRACKING (12 MO.) 03/25/2021 15:59 MICHELLE Morrison [place] TYPE: Emergency COMPLAINT: - LOWER BACK SHARP PAIN INPATIENT VISIT TRACKING (12 MO.) No inpatient visits to display in this time frame [id number]
[2021-03-25] MEDS ORDERED: HYDROCODON-ACE1 EA10 PO (16:21)
== END 2021-03-25 16:33 | disposition home or self-care (01) ==
LOC: ED 15:58
DX: S39.012A Strain of muscle, fascia and tendon of lower back, initial encounter (principal); X58.XXXA Exposure to other specified factors, initial encounter; Z79.899 Other long term (current) drug therapy; Z79.84 Long term (current) use of oral hypoglycemic drugs
CPT/HCPCS: 99283